=== PATIENT | male | born 1970 ===

== ENCOUNTER 2021-06-04 08:21 | Emergency (ER) | payer MEDICAID ==
[2021-06-04] MEDS ORDERED: methylPREDNISolone ACETATE 80 MG/1 ML INJ IM ONE (08:58)
--- NOTE | 2021-06-04 08:58 | Emergency Department Report ---
ED Rash HPI - HPI Chief Complaint: Skin Rash Stated Complaint: INSECT BITES Time Seen by Provider: 06/04/21 08:39 Duration: 5 Days Location: Other Suspected Cause: Animal Rash Symptoms: Yes Itching, No Facial Swelling, No Tongue/Oral Swelling, No Breathing Difficulties, No Choking Sensation, No Wheezing/Dyspnea, No Peeling, No Blistering, No Fever, No Lightheaded, No Malaise, No Myalgias Severity: severe Other History: 51 YO MALE COMES TO ER WITH GENERALIZED RASH CONSISTENT WITH BED BUGS. HE LIVES IN "HOME FOR [facility]." HE STATES OTHERS HAVE IT WELL. POS ITCHING. NO LESIONS APPPEAR TO HAVE SECONDARY INFECTIONS. VSS. NO FEVER OR CHILLS. NO SYSTEMIC SYMPTOMS. ED Review of Systems ROS: Stated complaint: INSECT BITES Other details as noted in HPI Comment: All other systems reviewed and negative ED Past Medical Hx - Past Medical History Previous Medical History?: No - Surgical History Past Surgical History?: No - Family History Family history: no significant - Social History Smoking Status: Never Smoker Substance Use Type: None - Medications Home Medications: Home Medications Medication Instructions Recorded Confirmed Last Taken Type Permethrin 5% [Acticin 5% CREAM] 1 applicatio TP ONCE #1 tube 06/04/21 Unknown Rx diphenhydrAMINE [Benadryl CAP] 25 mg PO Q8HR PRN #20 capsule 06/04/21 Unknown Rx Rash Exam - Exam General: Vital signs noted. No distress. Alert and acting appropriately. HEENT: No Periorbital Edema, No Conjuctival Injection, No Chemosis, No Perioral Edema, No Tongue Edema, No Uvular Edema, No Compromised Airway, No Drooling Lungs: Yes Good Air Exchange (Normal Breath Sounds), No Wheezes, No Ronchi, No Stridor, No Cough, No Labored Respirations, No Retractions, No Use of Accessory Muscles, No Other Abnormal Lung Sounds Heart: Yes Regular, No Murmur Skin: Yes Other (SMALL ROUND MACULAR LESIONS; GENERALIZED HEAD TO TOE CONSISTENT WITH BED BUGS; KNOWN EXPOSURE) Other: Positive: Abdomen Normal, Neurologic Normal, Musculoskeletal Normal ED Course Vital Signs 06/04/21 08:36 Temperature 98.4 F Pulse Rate 98 H Respiratory 16 Rate Blood Pressure 137/82 [Left] O2 Sat by Pulse 97 Oximetry ED Medical Decision Making - Medical Decision Making depomedrol for itching KNOWN EXPOSURE dc home with dc plan of care including care of his bedbugs. PT UNDERSTANDS IF THE ENVIRONMENT AND HIS PERSONAL ITEMS ARE NOT TREATED THAT THE BITES WILL CONTINUE. PT VERBALIZES UNDERSTANDING OF PLAN OF CARE INCLUDING USE OF MEDICATION TONIGHT AND CLEANING MEASURES. PT AMBULATORY NON ILL AND NON TOXIC ON DISCHARGE Vital Signs 06/04/21 08:36 Temperature 98.4 F Pulse Rate 98 H Respiratory 16 Rate Blood Pressure 137/82 [Left] O2 Sat by Pulse 97 Oximetry - Differential Diagnosis bed bugs Critical care attestation.: If time is entered above; I have spent that time in minutes in the direct care of this critically ill patient, excluding procedure time. ED Disposition Clinical Impression: Infestation by bed bug Disposition: DC-01 TO HOME OR SELFCARE Is pt being admited?: No Does the pt Need Aspirin: No Condition: Stable Instructions: Bedbugs, [id number], Bedbugs Additional Instructions: CLEAN ENTIRE LIVING AREA MEDS ORDERED TODAY FOLLOW UP WITH PCP NEXT WEEK Prescriptions: Permethrin 5% [Acticin 5% CREAM] 1 applicatio TP ONCE #1 tube diphenhydrAMINE [Benadryl CAP] 25 mg PO Q8HR PRN #20 capsule PRN Reason: Itching Referrals: CARLITA GUZMAN MD [Staff Physician] - 3-5 Days Time of Disposition: 09:08
[2021-06-04 09:21] VITALS: BP 136/71
== END 2021-06-04 09:20 | disposition home or self-care (01) ==
LOC: ED 08:21
DX: Z20.7 Contact with and (suspected) exposure to pediculosis, acariasis and other infestations (principal); R21 Rash and other nonspecific skin eruption
CPT/HCPCS: 96372; 99282; J1040